=== PATIENT | male | born 1995 | race Two or more races ===

== ENCOUNTER 2025-01-23 07:54 | Outpatient (CLI) | payer OTHER ==
[2025-01-23 08:52] LABS: PH,URINE 6.5 (5.0-8.0); URINE APPEARANCE Clear; URINE BILIRRUBIN Negative (NEGATIVE); URINE BLOOD Negative; URINE COLOR Yellow; URINE GLUCOSE Negative (NEGATIVE); URINE KETONE Negative (NEGATIVE); URINE LEUKOCYTE Negative; URINE NITRATE Negative; URINE PROTEIN Negative (NEGATIVE); URINE UROBILINOGEN 0.2 E.U./dl
[2025-01-23 08:56] LABS: URINE BACTERIA 8.5 uL (0.0-1933); URINE EPITHELIAL CELLS 1.8 uL (0.0-38.8); URINE RBC 2.9 uL (0.0-20.8); URINE WBC 1.8 uL (0.0-23.2)
[2025-01-23 09:29] LABS: HEMATOCRIT 48.8 % (39.0-48.0); HEMOGLOBIN 16.5 g/dL (13-16.00); MEAN CORPUSCULAR HEMOGLOBIN 29.8 pg (27.00-32.0); MEAN CORPUSCULAR HGB CONC 33.9 g/dl (32.0-36.0); PLATELET COUNT 206 K/uL (150-450); RED BLOOD COUNT 5.55 M/uL (4.00-6.00); RED CELL DISTRIBUTION WIDTH 13.2 % (11.5-14.5)
[2025-01-23 10:26] LABS: ALBUMIN 4.2 gm/dL (3.4-5.0); BILIRUBIN TOTAL 0.8 mg/dL (0.3-1.2); CALCIUM 9.1 mg/dL (8.5-10.1); CHOL HDL RATIO 3.5 (0-5.0); CREATININE SERUM 1.03 mg/dL (0.70-1.30); GFR 84.79; GLOBULINA 3.1 G/DL (2.4-3.5); POTASSIUM 4.47 mEq/L (3.5-5.1); TOTAL PROTEIN 7.3 gm/dL (6.4-8.2)
[2025-01-23 10:28] LABS: TSH 1.59 uIU/mL (0.358-3.74)
[2025-01-24 09:05] LABS: hav igm Negative (Negative); hcv Non Reactive (Non Reactive); hep b c Negative (Negative); hep b s ag Negative (Negative)
== END 2025-01-23 07:55 | disposition home or self-care (01) ==
LOC: LAB 07:54
DX: Z11.3 Encounter for screening for infections with a predominantly sexual mode of transmission (principal); Z12.11 Encounter for screening for malignant neoplasm of colon; Z13.21 Encounter for screening for nutritional disorder; Z13.0 Encounter for screening for diseases of the blood and blood-forming organs and certain disorders involving the immune mechanism; Z13.1 Encounter for screening for diabetes mellitus; Z13.220 Encounter for screening for lipoid disorders; Z13.29 Encounter for screening for other suspected endocrine disorder; N39.0 Urinary tract infection, site not specified; K29.00 Acute gastritis without bleeding; R19.5 Other fecal abnormalities; B89 Unspecified parasitic disease

== ENCOUNTER 2025-01-23 08:50 | Outpatient (CLI) | payer OTHER | END 2025-01-23 08:54 | disposition home or self-care (01) | LOC: SONOGRAMA 08:50 | DX: K29.00 Acute gastritis without bleeding (principal); R19.5 Other fecal abnormalities; B89 Unspecified parasitic disease; N39.0 Urinary tract infection, site not specified; Z13.29 Encounter for screening for other suspected endocrine disorder; Z13.220 Encounter for screening for lipoid disorders; Z13.0 Encounter for screening for diseases of the blood and blood-forming organs and certain disorders involving the immune mechanism; Z13.21 Encounter for screening for nutritional disorder; Z12.11 Encounter for screening for malignant neoplasm of colon; Z11.3 Encounter for screening for infections with a predominantly sexual mode of transmission ==

== ENCOUNTER 2025-01-26 09:54 | Outpatient (CLI) | payer OTHER ==
[2025-01-26 11:10] LABS: ob NEGATIVE (NEGATIVE)
== END 2025-01-26 13:10 | disposition home or self-care (01) ==
LOC: LAB 09:54
DX: Z11.3 Encounter for screening for infections with a predominantly sexual mode of transmission (principal); Z12.11 Encounter for screening for malignant neoplasm of colon; Z13.21 Encounter for screening for nutritional disorder; Z13.0 Encounter for screening for diseases of the blood and blood-forming organs and certain disorders involving the immune mechanism; Z13.1 Encounter for screening for diabetes mellitus; Z13.220 Encounter for screening for lipoid disorders; Z13.29 Encounter for screening for other suspected endocrine disorder; N39.0 Urinary tract infection, site not specified; K29.00 Acute gastritis without bleeding; R19.5 Other fecal abnormalities; B89 Unspecified parasitic disease

== ENCOUNTER 2025-01-30 06:50 | Outpatient (CLI) | payer OTHER | END 2025-01-30 06:58 | disposition home or self-care (01) | LOC: LAB 06:50 | PROVIDERS: ATTEND General Practice | DX: Z12.5 Encounter for screening for malignant neoplasm of prostate (principal); I86.1 Scrotal varices ==

== ENCOUNTER 2025-01-30 07:14 | Outpatient (CLI) | payer OTHER | END 2025-01-30 07:20 | disposition home or self-care (01) | LOC: SONOGRAMA 07:14 | PROVIDERS: ATTEND General Practice | DX: I86.1 Scrotal varices (principal) ==